=== PATIENT | female | born 1980 | race Caucasian/White ===

== ENCOUNTER 2016-09-29 08:21 | Emergency (ER) | payer OTHER ==
[2016-09-29] MEDS ORDERED: OXYCODONE HCL SR 10 MG TABLET PO ONE ×2 (10:11→16:15)
[2016-09-29] MEDS ORDERED: PIPERACILLIN/TAZOBACTAM 3.375 GM VIAL IV ONE ×2 (11:34→16:15)
[2016-09-29] MEDS ORDERED: VANCOMYCIN HCL INJ 1000 MG VIAL IV ONE ×2 (11:34→16:15)
--- NOTE | 2016-09-29 11:36 | ER Document Report ---
ED General - General Mode of Arrival: Ambulatory Information source: Patient TRAVEL OUTSIDE OF THE U.S. IN LAST 30 DAYS: No <RICHELLE RAMIREZ - Last Filed: 09/29/16 17:07> <AUBREE SIMON - Last Filed: 09/30/16 05:45> - General Chief Complaint: Post Surgical Bleeding Stated Complaint: POST OP PROBLEM Time Seen by Provider: 09/29/16 09:53 Notes: Patient is a 36-year-old female who presents to the ER today for draining from her surgical incision site. Patient had a right thoracotomy and esophagogastrectomy on 13 September at [facility] and states that last night the pain to the right back at the incision site started getting worse, she had to take 15 mg of oxycodone which is unusual for her. She states that this morning it started leaking pus. She denies any fevers or chills. She states her surgeon at [facility] is Dr. Gtz. (RICHELLE RAMIREZ) - Related Data Allergies/Adverse Reactions: latex [Latex] Allergy (Severe, Verified 09/29/16 08:25) Hives hydrocodone bitartrate [From Lortab] Allergy (Mild, Verified 09/29/16 08:25) Urticaria tramadol HCl [From Ultram] Allergy (Verified 09/29/16 08:25) Past Medical History - General Information source: Patient - Social History Smoking Status: Never Smoker Chew tobacco use (# tins/day): No Frequency of alcohol use: Occasional Drug Abuse: None Family History: Reviewed & Not Pertinent Patient has suicidal ideation: No Patient has homicidal ideation: No - Past Medical History Cardiac Medical History: Denies: Hx Coronary Artery Disease, Hx Heart Attack, Hx Hypertension Pulmonary Medical History: Reports: Hx Asthma, Hx Pneumonia - asipration pneumonia x4 Denies: Hx Bronchitis, Hx COPD Neurological Medical History: Denies: Hx Cerebrovascular Accident, Hx Seizures Renal/ Medical History: Denies: Hx Peritoneal Dialysis Musculoskeltal Medical History: Reports Hx Arthritis Past Surgical History: Reports: Hx Abdominal Surgery - j-tube placement, Hx Section - x's2, Hx Cholecystectomy, Hx Gynecologic Surgery - "various" . Denies: Hx Hysterectomy - Immunizations Hx Diphtheria, Pertussis, Tetanus Vaccination: Yes <RICHELLE RAMIREZ - Last Filed: 09/29/16 17:07> Review of Systems - Review of Systems Constitutional: No symptoms reported EENT: No symptoms reported Cardiovascular: No symptoms reported Respiratory: No symptoms reported Gastrointestinal: No symptoms reported Genitourinary: No symptoms reported Female Genitourinary: No symptoms reported Musculoskeletal: No symptoms reported Skin: See HPI Hematologic/Lymphatic: No symptoms reported Neurological/Psychological: No symptoms reported <LLOYD RAMIREZANDA - Last Filed: 09/29/16 17:07> Physical Exam <RICHELLE RAMIREZ - Last Filed: 09/29/16 17:07> <AUBREE SIMON - Last Filed: 09/30/16 05:45> - Vital signs Vitals: Temp Pulse Resp BP Pulse Ox 98.6 F 112 H 19 107/57 L 95 09/29/16 08:25 09/29/16 08:25 09/29/16 08:25 09/29/16 08:25 09/29/16 08:25 - Notes Notes: PHYSICAL EXAMINATION: GENERAL: Well-appearing and in no acute distress. HEAD: Atraumatic, normocephalic. EYES: Pupils equal round and reactive to light, extraocular movements intact, sclera anicteric, conjunctiva are normal. NECK: Normal range of motion, supple without lymphadenopathy LUNGS: CTAB and equal. No wheezes rales or rhonchi. HEART: Regular rate and rhythm without murmurs ABDOMEN: Soft, no tenderness. No guarding, no rebound BACK: see skin below, no vertebral tenderness, normal ROM GI/: no CVA tenderness EXTREMITIES: Normal range of motion, no pitting edema. No cyanosis. NEUROLOGICAL: Cranial nerves grossly intact. Normal sensory/motor exams. PSYCH: Normal mood, normal affect. SKIN: Warm, Dry, normal turgor, large incision site to right upper back with 7cm by 4 cm of induration and tenderness and constant leaking of purulent drainage from one small, less than 1cm area only, no erythema surrounding incision site (RICHELLE RAMIREZ) Course - Laboratory Result Diagrams: 09/29/16 11:48 09/29/16 11:48 <RICHELLE RAMIREZ - Last Filed: 09/29/16 17:07> - Laboratory Result Diagrams: 09/29/16 11:48 09/29/16 11:48 <AUBREE SIMON - Last Filed: 09/30/16 05:45> - Re-evaluation Re-evalutation: 09/29/16 13:33 Patient has a white count of 13.6, she is afebrile here. I did consult with Dr. Gtz, who does want her to go back to [facility] so that he can drain this in the operating room. Radiologist just called and said that it does appear that she has had an aspiration pneumonia on chest x-ray. PICC line will be placed here and patient has already been ordered IV antibiotics but she is an incredibly difficult stick and we have been unable to get an IV at this point. Clinically she is doing very well. 09/29/16 13:36 Dr. Gtz is accpeting, she will go [facility] for direct admission. We are awaiting bed assignment. Shes asking for pain medication. 09/29/16 17:07 just called [facility], they do not have a clue when pt may get a bed. (RICHELLE RAMIREZ) 09/29/16 22:08 Patient asking for additional pain medicine, giving oxycodone. Patient now has a bed assignment, transport is about 25 minutes away, patient asking for Phenergan for the trip. She has a PICC line in place. No other complaints at this time. Vital signs with no remarkable changes. Stable for transfer. 09/29/16 23:00 EMS arriving. Patient comfortable. No changes from prior. Borderline tachycardia , no hypotension. Stable for transport. (AUBREE SIMON) - Vital Signs Vital signs: Temp Pulse Resp BP Pulse Ox 98.5 F 98 16 109/69 95 09/29/16 21:40 09/29/16 21:40 09/29/16 23:01 09/29/16 23:01 09/29/16 23:01 - Laboratory Laboratory results interpreted by ga: 09/29/16 09/29/16 11:48 11:48 WBC 13.6 H RBC 3.43 L Hgb 10.3 L Hct 30.5 L Seg Neutrophils % 80.2 H Lymphocytes % 6.5 L Absolute Neutrophils 10.9 H Absolute Monocytes 1.6 H Sodium 133.9 L Potassium 3.5 L Creatinine 0.43 L Glucose 118 H Total Protein 5.3 L Albumin 2.7 L Discharge <RICHELLE RAMIREZ - Last Filed: 09/29/16 17:07> <BOUCHRAALBERTOAUBREE - Last Filed: 09/30/16 05:45> - Discharge Clinical Impression: Status post peripherally inserted central catheter (PICC) central line placement Aspiration pneumonia Qualifiers: Aspiration pneumonia type: unspecified Laterality: right Lung location: lower lobe of lung Qualified Code(s): J69.0 - Pneumonitis due to inhalation of food and vomit Deep incisional surgical site infection Qualifiers: Encounter type: initial encounter Qualified Code(s): T81.4XXA - Infection following a procedure, initial encounter Condition: Stable [facility]: [facility]
[2016-09-29 12:01] LABS: ABSOLUTE EOSINOPHILS # (AUTO) 0.1 10^3/uL (0.0-0.6); ABSOLUTE LYMPHOCYTES (AUTO) 0.9 10^3/uL (0.5-4.7); ABSOLUTE MONOCYTES (AUTO) 1.6 10^3/uL (0.1-1.4); ABSOLUTE NEUT (AUTO) 10.9 10^3/uL (1.7-8.2); BASOPHILS % (AUTO) 0.3 % (0-2); HEMATOCRIT 30.5 % (36.0-47.0); HEMOGLOBIN 10.3 g/dL (12.0-15.5); HGB HCT DIFFERENCE 0.4; LYMPHOCYTES % (AUTO) 6.5 % (13-45); MEAN CORPUSCULAR HGB CONC 33.7 g/dL (32.0-36.0); MEAN CORPUSCULAR VOLUME 89 fl (80-97); RED BLOOD COUNT 3.43 10^6/uL (3.72-5.28); RED CELL DISTRIBUTION WIDTH 13.3 % (11.5-14.0); SEGMENTED NEUTROPHILS % (AUTO) 80.2 % (42-78); WHITE BLOOD COUNT 13.6 10^3/uL (4.0-10.5)
[2016-09-29 12:17] LABS: ALANINE AMINOTRANSFERASE 24 U/L (9-52); ALBUMIN 2.7 g/dL (3.5-5.0); ALKALINE PHOSPHATASE 93 U/L (38-126); ANION GAP 8 (5-19); ASPARTATE AMINO TRANSFERASE 14 U/L (14-36); BILIRUBIN,DIRECT 0.4 mg/dL (0.0-0.4); BILIRUBIN,TOTAL 0.4 mg/dL (0.2-1.3); BLOOD UREA NITROGEN 8 mg/dL (7-20); CALCIUM 8.7 mg/dL (8.4-10.2); CARBON DIOXIDE 23 mmol/L (22-30); CHLORIDE 103 mmol/L (98-107); CREATININE RESULT 0.43 mg/dL (0.52-1.25); GLUCOSE 118 mg/dL (75-110); POTASSIUM 3.5 mmol/L (3.6-5.0); SODIUM 133.9 mmol/L (137-145); TOTAL PROTEIN 5.3 g/dL (6.3-8.2)
--- NOTE | 2016-09-29 13:44 | RADIOLOGY REPORT (SQ) ---
EXAM DESCRIPTION: CHEST PA/LAT COMPLETED DATE/TIME: 09/29/2016 1:32 pm REASON FOR STUDY: cough productive Post right thoracotomy and esophagectomy, purulent wound drainage COMPARISON: None. EXAM PARAMETERS: NUMBER OF VIEWS: two views TECHNIQUE: Digital Frontal and Lateral radiographic views of the chest acquired. RADIATION DOSE: NA LIMITATIONS: none FINDINGS: LUNGS AND PLEURA: On the right side, there is blunting of the right lateral costophrenic a ngle and posterior costophrenic sulcus from pleural fluid or pleural thickening. Diffuse consolidati on is seen in the right lower lobe, atelectasis versus pneumonia. On the left side, there is retrocardiac consolidation atelectasis versus pneumonia. No pneumothorax. No left pleural effusion. MEDIASTINUM AND HILAR STRUCTURES: No masses or contour abnormalities. HEART AND VASCULAR STRUCTURES: Heart normal size. No evidence for failure. BONES: No acute findings. HARDWARE: Surgical clips in the left paratracheal region, left upper quadrant, and right upper quadra nt OTHER: No other significant finding. IMPRESSION: Post right thoracotomy for esophagectomy and gastric pull-through. There is a small elicia unt of right lateral costophrenic sulcus pleural fluid. Dense right retrocardiac and minimal left re trocardiac consolidation atelectasis versus pneumonia. This report was discussed with the patient's ED provider. TECHNICAL DOCUMENTATION: JOB ID: [id number] [employer]- All Rights Reserved
[2016-09-29] MEDS ORDERED: MORPHINE SULFATE 10 MG/ML INJ IV ONE (14:02)
[2016-09-29] MEDS ORDERED: OXYCODONE HCL IR 5 MG TABLET PO ONE ×3 (14:15→22:08)
[2016-09-29] MEDS ORDERED: MORPHINE SULFATE 10 MG/ML INJ IM ONE (14:16)
--- NOTE | 2016-09-29 15:44 | RADIOLOGY REPORT (SQ) ---
EXAM DESCRIPTION: PICC INSERTION; U/S GUIDE FOR VASCULAR ACCESS; FLUORO/CV PLACEMENT COMPLETED DATE/TIME: 09/29/2016 3:35 pm REASON FOR STUDY: pending transfer, difficult access; IV ACCESS COMPARISON: Two-view chest 09/29/2016 FLUOROSCOPY TIME: 1 minutes 48 seconds 1 digital chest and 1 ultrasound images saved to PACS. TECHNIQUE: Fluoroscopic and ultrasound guided PICC placement. LIMITATIONS: None. PROCEDURE: After written consent and assessment were obtained, the patient was brought into the fluo roscopy room and place supine on the table. Ultrasound was used on the patient's right arm for PICC access. The right arm was prepped and draped in a sterile fashion along with the ultrasound probe. Th e entry site was anesthetized with 3 mL of 1% lidocaine. A 21 gauge 7 cm needle was advanced through the skin and into the right basilic vein under live ultrasound guidance. An ultrasound image was hong ed to PACS confirming access site. A .018 guide wire was then inserted through the needle and into t he venous system. The needle was the removed and an 11 blade scalpel was used to make a 1cm skin inci jenni. A 5 fr peel-away sheath was advanced over the wire and into the venous system. A measurement w as then made using the existing wire and live fluoroscopic guidance. The wire was then removed and th e trimmed. The PICC was advanced through the peel-away sheath and into the venous system. The peel-aw ay sheath was removed and the catheter was adhered to the patients arm with a stat lock. The catheter was then aspirated and flushed and a sterile bandage was placed over the access site. A fluoroscopi c spot image was saved to PACS confirming the catheter tip within the superior vena cava. IMPRESSION: SUCCESSFUL PLACEMENT OF A 5 FR DUAL LUMEN 31 CM PICC IN THE RIGHT BASILIC VEIN. COMMENT: Patient medication list reviewed: Yes- Quality ID# [id number]:Eligible professional attests to doc umenting in the medical record they obtained, updated, or reviewed the patient's current medications. . Quality ID 145: Final reports for procedures using fluoroscopy that document radiation exposure juli teagan, or exposure time and number of fluorographic images (if radiation exposure indices are not avail able) Quality ID #76: The patient was prepped and draped using maximum sterile barrier technique including cap, mask, sterile gown, sterile gloves, a large sterile sheet, hand hygiene, and 2% Chlorhexidine fo r cutaneous antisepsis. When ultrasound is used, sterile ultrasound techniques are followed requiring sterile gel and sterile probes. TECHNICAL DOCUMENTATION: JOB ID: [id number] [employer]- All Rights Reserved
[2016-09-29] MEDS ORDERED: HYDROMORPHONE HCL INJ/PF 2 MG/ML AMPULE IV ONE ×2 (17:06→21:01)
[2016-09-29] MEDS ORDERED: BENZONATATE 100 MG CAPSULE PO ONE (17:06)
[2016-09-29] MEDS ORDERED: PROMETHAZINE HCL INJ 25 MG/1 ML VIAL IV ONE (22:03)
[2016-09-29] MEDS ORDERED: PROMETHAZINE HCL INJ 25 MG/1 ML VIAL ONE (22:21)
[2016-09-29] MEDS ORDERED: ACETAMINOPHEN 325 MG TABLET ONE (22:28)
[2016-09-29] MEDS ORDERED: ACETAMINOPHEN 325 MG TABLET PO ONE (22:40)
--- NOTE | 2016-09-29 22:50 | ER Document Report ---
Doctor's Note Notes: 09/29/16 22:49 Patient was seen and evaluated at bedside, awake and alert, no complaints at present time, reports no needs, EMS [facility] in the department to pick patient up and transport to tertiary care center, patient is stable for transport at this time
[2016-09-29 23:14] VITALS: BP 109/69
== END 2016-09-29 23:20 ==
LOC: ER 08:21
DX: T81.4XXA Infection following a procedure, initial encounter (principal); Y83.6 Removal of other organ (partial) (total) as the cause of abnormal reaction of the patient, or of later complication, without mention of misadventure at the time of the procedure; J69.0 Pneumonitis due to inhalation of food and vomit; Z90.49 Acquired absence of other specified parts of digestive tract; Z90.3 Acquired absence of stomach [part of]; Z91.040 Latex allergy status; Z88.5 Allergy status to narcotic agent; J45.909 Unspecified asthma, uncomplicated
CPT/HCPCS: 96376; 99285; 96372; 96375; 96365; 96368; 36415; 87040; 87070; 87205; 85025; 87075; 87077; 80053; 87186; 71020; 36569; 77001; 76937; J2270; J1170; J3370; J1642; J2543; J2550

== ENCOUNTER 2017-01-17 16:24 | Emergency (ER) | payer OTHER ==
[2017-01-17] MEDS ORDERED: ONDANSETRON HCL INJ/PF 4 MG/2 ML SDV IV ONE ×2 (16:41→17:02)
[2017-01-17] MEDS ORDERED: NORMAL SALINE 1000 ML 1,000 ML IV ONE ×2 (16:41→17:03)
[2017-01-17] MEDS ORDERED: HYDROMORPHONE HCL INJ/PF 2 MG/ML AMPULE IV ONE ×3 (17:01→22:35)
[2017-01-17 17:04] LABS: ABSOLUTE BASOPHILS # (AUTO) 0.1 10^3/uL (0.0-0.2); ABSOLUTE EOSINOPHILS # (AUTO) 0.1 10^3/uL (0.0-0.6); ABSOLUTE LYMPHOCYTES (AUTO) 2.2 10^3/uL (0.5-4.7); ABSOLUTE MONOCYTES (AUTO) 0.8 10^3/uL (0.1-1.4); ABSOLUTE NEUT (AUTO) 9.1 10^3/uL (1.7-8.2); BASOPHILS % (AUTO) 0.5 % (0-2); EOSINOPHILS % (AUTO) 1.1 % (0-6); HEMATOCRIT 44.5 % (36.0-47.0); HEMOGLOBIN 14.5 g/dL (12.0-15.5); LYMPHOCYTES % (AUTO) 18.1 % (13-45); MEAN CORPUSCULAR HGB CONC 32.5 g/dL (32.0-36.0); MEAN CORPUSCULAR VOLUME 80 fl (80-97); MONOCYTES % (AUTO) 6.9 % (3-13); RED BLOOD COUNT 5.57 10^6/uL (3.72-5.28); RED CELL DISTRIBUTION WIDTH 17.5 % (11.5-14.0); SEGMENTED NEUTROPHILS % (AUTO) 73.4 % (42-78); WHITE BLOOD COUNT 12.3 10^3/uL (4.0-10.5)
--- NOTE | 2017-01-17 17:08 | ER Document Report ---
ED General - General Information source: Patient, Relative TRAVEL OUTSIDE OF THE [place]. IN LAST 30 DAYS: No - HPI Patient complains to provider of: Epigastric pain Onset: Just prior to arrival Onset/Duration: Sudden, Persistent Severity: Severe Pain Level: 5 Associated symptoms: Nausea, Vomiting Exacerbated by: Denies Relieved by: Denies Similar symptoms previously: No Recently seen / treated by doctor: No <GERARDO SPRINGER - Last Filed: 01/17/17 19:51> <RACIEL PATTEN - Last Filed: 01/18/17 02:37> - General Chief Complaint: Abdominal Pain Stated Complaint: ABDOMINAL PAIN Time Seen by Provider: 01/17/17 16:51 - HPI Notes: 36-year-old female presents emergency department with the above chief complaint. Patient had esophagectomy August 14, 2007. In September of this year she is also had a thoracotomy for a pyloric repair. That was followed by wound infection. Presented here for acute onset of severe epigastric pain. She states that her stomach is now in her thoracic cavity. Sur[facility] (GERARDO SPRINGER) - Related Data Allergies/Adverse Reactions: latex [Latex] Allergy (Severe, Verified 01/17/17 16:25) Hives hydrocodone bitartrate [From Lortab] Allergy (Mild, Verified 01/17/17 16:25) Urticaria tramadol HCl [From Ultram] Allergy (Verified 01/17/17 16:25) Past Medical History - General Information source: Patient, Relative - Social History Smoking Status: Never Smoker Frequency of alcohol use: Social - Wine Drug Abuse: None Lives with: Family Family History: Reviewed & Not Pertinent - Past Medical History Cardiac Medical History: Denies: Hx Coronary Artery Disease, Hx Heart Attack, Hx Hypertension Pulmonary Medical History: Reports: Hx Asthma, Hx Pneumonia - asipration pneumonia x4 Denies: Hx Bronchitis, Hx COPD Neurological Medical History: Denies: Hx Cerebrovascular Accident, Hx Seizures Endocrine Medical History: Reports: None Renal/ Medical History: Reports: None. Denies: Hx Peritoneal Dialysis Malignancy Medical History: Reports: None GI Medical History: Reports: Hx Gastroesophageal Reflux Disease, Other - Benign esophageal tumor Musculoskeltal Medical History: Reports Hx Arthritis Skin Medical History: Reports None Psychiatric Medical History: Reports: None Traumatic Medical History: Reports: None Past Surgical History: Reports: Hx Abdominal Surgery - j-tube placement, Hx Section - x's2, Hx Cholecystectomy, Hx Gynecologic Surgery - "various" . Denies: Hx Hysterectomy - Immunizations Hx Diphtheria, Pertussis, Tetanus Vaccination: Yes <GERARDO SPRINGER - Last Filed: 01/17/17 19:51> <RACIEL PATTEN - Last Filed: 01/18/17 02:37> Other: Patient states she had a right wrist fracture which required repair with no hardware placed (GERARDO SPRINGER E) Review of Systems - Review of Systems Constitutional: No symptoms reported EENT: No symptoms reported Cardiovascular: No symptoms reported Respiratory: No symptoms reported Gastrointestinal: Abdominal pain, Nausea, Vomiting Female Genitourinary: No symptoms reported Musculoskeletal: No symptoms reported Skin: No symptoms reported Hematologic/Lymphatic: No symptoms reported Neurological/Psychological: No symptoms reported <FAVIOANNASAMMIMASON E - Last Filed: 01/17/17 19:51> Physical Exam <FAVIOANNASAMMIMASON Sofya - Last Filed: 01/17/17 19:51> <RACIEL PATTEN - Last Filed: 01/18/17 02:37> - Vital signs Vitals: Resp BP 22 H 116/94 H 01/17/17 16:31 01/17/17 16:31 - Notes Notes: PHYSICAL EXAMINATION: GENERAL: Pale nontoxic acute distress secondary to epigastric pain HEAD: Atraumatic, normocephalic. EYES: Pupils equal round and reactive to light, extraocular movements intact, conjunctiva are normal. ENT: Nares patent, oropharynx clear without exudates. Moist mucous membranes. NECK: Normal range of motion, supple without lymphadenopathy LUNGS: Breath sounds clear to auscultation bilaterally and equal. No wheezes rales or rhonchi. HEART: Regular rate and rhythm without murmurs ABDOMEN: Soft, pain with epigastric area palpation, nondistended abdomen. No guarding, no rebound. No masses appreciated. Female : deferred Musculoskeletal: Normal range of motion, no pitting or edema. No cyanosis. NEUROLOGICAL: Cranial nerves grossly intact. Normal speech, normal gait. Normal sensory, motor exams PSYCH: Normal mood, normal affect. SKIN: Warm, Dry, normal turgor, no rashes or lesions noted. (GERARDO SPRINGER) Course - Laboratory Result Diagrams: 01/17/17 16:51 01/17/17 16:51 - Diagnostic Test Radiology reviewed: Image reviewed, Reports reviewed - SBO <GERARDO SPRINGER - Last Filed: 01/17/17 19:51> - Laboratory Result Diagrams: 01/17/17 16:51 01/17/17 16:51 <RACIEL PATTEN - Last Filed: 01/18/17 02:37> - Re-evaluation Re-evalutation: 01/17/17 19:32 I did speak to our surgeon who stated transfer to [facility] is acceptable. Pt. is aware of her diagnosis and agreeable to transfer. [place] is aware and implementing transfer protocol (GERARDO SPRINGER) 01/18/17 02:35 We still [facility] as they were still trying find the [facility]. I went reevaluate the patient and she is doing okay but since she has started have some pain come back. Her abdomen is still soft on exam without rigidiy or significant guarding. I will reorder pain medicine. [facility] called the [facility] again and spoke with the historic site administrator, Adrian Capellan. He informed me that they are trying everything to get in touch with the surgeon. After I talked to Mr. Capellan he called back approximately 10 minutes later and said they have finally got in touch with the surgeon and the patient is accepted as an ER to ER transfer. He said the accepting physician is Dr. Lisa Francisco. Our nurse is calling to give report and we will arrange transport. (RACIEL PATTEN) - Vital Signs Vital signs: Temp Pulse Resp BP Pulse Ox 98.1 F 84 14 100/66 97 01/18/17 01:28 01/18/17 01:28 01/18/17 01:28 01/18/17 01:28 01/18/17 01:28 - Laboratory Laboratory results interpreted by me: 01/17/17 01/17/17 01/17/17 16:51 16:51 19:53 WBC 12.3 H RBC 5.57 H MCH 26.0 L RDW 17.5 H Absolute Neutrophils 9.1 H Carbon Dioxide 20 L BUN 24 H Glucose 159 H Calcium 10.3 H Alkaline Phosphatase 135 H Total Protein 8.3 H Urine Ketones TRACE H Urine Blood MODERATE H Ur Leukocyte Esterase TRACE H Discharge <GERARDO SPRINGER - Last Filed: 01/17/17 19:51> <RACIEL PATTEN - Last Filed: 01/18/17 02:37> - Discharge Clinical Impression: Small bowel obstruction [facility]: [facility]
[2017-01-17 17:22] LABS: ALANINE AMINOTRANSFERASE 31 U/L (9-52); ALBUMIN 4.9 g/dL (3.5-5.0); ALKALINE PHOSPHATASE 135 U/L (38-126); ANION GAP 17 (5-19); ASPARTATE AMINO TRANSFERASE 21 U/L (14-36); BILIRUBIN,DIRECT 0.4 mg/dL (0.0-0.4); BILIRUBIN,TOTAL 0.5 mg/dL (0.2-1.3); BLOOD UREA NITROGEN 24 mg/dL (7-20); CALCIUM 10.3 mg/dL (8.4-10.2); CARBON DIOXIDE 20 mmol/L (22-30); CHLORIDE 105 mmol/L (98-107); CREATININE RESULT 0.82 mg/dL (0.52-1.25); GLUCOSE 159 mg/dL (75-110); LIPASE 189.9 U/L (23-300); POTASSIUM 4.4 mmol/L (3.6-5.0); SODIUM 142.2 mmol/L (137-145); TOTAL PROTEIN 8.3 g/dL (6.3-8.2)
--- NOTE | 2017-01-17 18:55 | RADIOLOGY REPORT (SQ) ---
EXAM DESCRIPTION: CT CHEST WITH; CT ABD/PELVIS WITH IV ONLY COMPLETED DATE/TIME: 01/17/2017 6:36 pm REASON FOR STUDY: epigastric pain/esophogectomy COMPARISON: Correlation made to CT chest from 12/14/2007 CONTRAST TYPE AND DOSE: contrast/concentration: Isovue 370.00 mg/ml; Total Contrast Delivered: 74.0 ml; Total Saline Delivered: 66.0 ml RENAL FUNCTION: None required. The patient is less than 50 years old. TECHNIQUE: CT scan of the chest performed using helical scanning technique with dynamic intravenous contrast injection. Images reviewed with lung, soft tissue and bone windows. Reconstructed coronal a nd sagittal MPR images reviewed. All images stored on PACS. CT scan of the abdomen and pelvis performed with intravenous and with oral contrastusing helical scan feliciano technique with dynamic intravenous contrast injection. Images reviewed with lung, soft tissue a nd bone windows. Reconstructed coronal and sagittal MPR images reviewed. Delayed images for evaluat ion of the urinary system also acquired and evaluated. All images stored on PACS. All CT scanners at this facility use dose modulation, iterative reconstruction, and/or weight based d osing when appropriate to reduce radiation dose to as low as reasonably achievable (ALARA). [facility]: Dose Right [facility]: CareDose [facility]: Dose Right [facility]: Teradose 4D [facility]: Smart Technologies RADIATION DOSE: CT Rad equipment meets quality standard of care and radiation dose reduction techniq ues were employed. CTDIvol: NaN - NaN mGy. DLP: 0 mGy-cm. . LIMITATIONS: None. FINDINGS: CHEST: LUNGS AND PLEURA: No opacities, nodules, masses. No pneumothorax. No effusions. HILAR AND MEDIASTINAL STRUCTURES: No identified masses or abnormal nodes. Stable postsurgical change related to esophagectomy with gastric pull through. HEART AND VASCULAR STRUCTURES: No aneurysm or dissection. No central pulmonary emboli. No pericardi al effusion. HARDWARE: None. THYROID AND OTHER SOFT TISSUES: No masses. No adenopathy. BONES: No significant finding. OTHER: No other significant finding. ABDOMEN AND PELVIS: LIVER: Normal size. 3.3 cm low attenuating lesion right hepatic lobe lobe present on prior noncontra st CT chest which demonstrates nodular peripheral discontinuous enhancement which begins to fill in o n delayed imaging compatible with a benign hemangioma. No additional liver lesions. No dilated duct s. SPLEEN: Normal size. No focal lesions. PANCREAS: No masses. No significant calcifications. No adjacent inflammation or peripancreatic fluid collections. Pancreatic duct not dilated. GALLBLADDER: Surgically absent. ADRENAL GLANDS: No significant masses or asymmetry. RIGHT KIDNEY AND URETER: No solid masses. No significant calcification. No hydronephrosis or hydroure ter. LEFT KIDNEY AND URETER: No solid masses. No significant calcification. No hydronephrosis or hydrouret er. AORTA AND VESSELS: No aneurysm. No dissection. Renal arteries, SMA, celiac without stenosis. RETROPERITONEUM: No retroperitoneal adenopathy, hemorrhage or masses. BOWEL AND PERITONEAL CAVITY: Marked fluid distension of the proximal small bowel loops with decompres sed distal small bowel loops and colon compatible with a high grade small bowel obstruction. Transit ion 0.7 inch to be somewhere in the mid abdomen best visualized on series 3, image 77 and series 601, image 23. No pneumatosis or free air. APPENDIX: Normal. ABDOMINAL WALL: No masses. No hernias. BONES: No significant or acute findings. OTHER: No other significant finding. IMPRESSION: NORMAL CT OF THE CHEST WITH IV CONTRAST. POSTSURGICAL CHANGE RELATED TO ESOPHAGECTOMY W ITH GASTRIC PULL-THROUGH. CT FINDINGS COMPATIBLE WITH HIGH-GRADE SMALL BOWEL OBSTRUCTION WITH TRANSITION POINT SOMEWHERE IN THE MID ABDOMEN. NO PNEUMATOSIS OR FREE AIR. SURGICAL CONSULTATION RECOMMENDED. TECHNICAL DOCUMENTATION: JOB ID: [id number] Quality ID # [id number]: Final reports with documentation of one or more dose reduction techniques (e.g., Au tomated exposure control, adjustment of the mA and/or kV according to patient size, use of iterative reconstruction technique) 2010 [employer] All Rights Reserved
[2017-01-17 20:26] LABS: APPEARANCE,URINE CLEAR; BILIRUBIN,URINE NEGATIVE (NEGATIVE); GLUCOSE, URINE NEGATIVE (NEGATIVE); KETONES,URINE TRACE mg/dL (NEGATIVE); LEUKOCYTE ESTERASE,URINE TRACE (NEGATIVE); NITRITE,URINE NEGATIVE (NEGATIVE); PROTEIN,URINE NEGATIVE (NEGATIVE); URINE SPECIFIC GRAVITY > 1.060; UROBILINOGEN,URINE NEGATIVE mg/dL (<2.0)
[2017-01-17] MEDS ORDERED: PANTOPRAZOLE SODIUM 40 MG VIAL IV ONE (21:35)
[2017-01-18] MEDS ORDERED: HYDROMORPHONE HCL INJ/PF 2 MG/ML AMPULE IV ONE (02:37)
[2017-01-18 03:26] VITALS: BP 102/68
== END 2017-01-18 03:40 ==
LOC: ER 16:24
DX: K56.609 Unspecified intestinal obstruction, unspecified as to partial versus complete obstruction (principal); R10.13 Epigastric pain; R11.2 Nausea with vomiting, unspecified; Z91.040 Latex allergy status; Z88.6 Allergy status to analgesic agent; Z90.49 Acquired absence of other specified parts of digestive tract
CPT/HCPCS: 96376; 99285; 96361; 96374; 96375; 36415; 83690; 84703; 85025; 80053; 81001; 71260; 74177; J1170 ×2; S0164; J2405; J7030

== ENCOUNTER 2017-01-30 05:19 | Emergency (ER) | payer OTHER ==
[2017-01-30] MEDS ORDERED: PROMETHAZINE HCL INJ 25 MG/1 ML VIAL IM ONE (05:29)
[2017-01-30] MEDS ORDERED: NORMAL SALINE 1000 ML 1,000 ML IV ONE (05:30)
[2017-01-30] MEDS ORDERED: HYDROMORPHONE HCL INJ/PF 2 MG/ML AMPULE IV ONE ×2 (05:36→08:43)
--- NOTE | 2017-01-30 05:38 | ER Document Report ---
Doctor's Note Notes: 01/30/17 05:37 I performed a quick triage evaluation the patient. Patient is a 36-year-old female who has a history of esophagectomy by procedure with a pulled her stomach up into the chest cavity to form a new esophageal type tract. Patient has a history of recurrent obstructions. She was seen here just over week ago. She was diagnosed with obstruction and sent to the [facility] in [place]. She was treated there over several days. She eventually was able to have NG tube removed and had a bowel movement. She said she was still having cramping but being that she has a bowel movement there will discharge home. Since then she is continued to have worsening worsening abdominal pain and now is to the point where she cannot hold down any food or liquids and feels that she is obstructed again. No fevers. No infections. No blood in her stool. No blood or emesis. No other complaints at this time. On exam patient is in obvious pain and does have some pain to palpation her abdomen. Abdomen is not rigid or firm or hard. I have ordered blood work as well as pain medicine and nausea medicine as well as abdominal x-rays. Dictation of this chart was performed using voice recognition software; therefore, there may be some unintended grammatical errors.
[2017-01-30 06:07] LABS: ABSOLUTE EOSINOPHILS # (AUTO) 0.1 10^3/uL (0.0-0.6); ABSOLUTE LYMPHOCYTES (AUTO) 2.5 10^3/uL (0.5-4.7); ABSOLUTE MONOCYTES (AUTO) 0.8 10^3/uL (0.1-1.4); ABSOLUTE NEUT (AUTO) 4.4 10^3/uL (1.7-8.2); BASOPHILS % (AUTO) 0.4 % (0-2); EOSINOPHILS % (AUTO) 1.3 % (0-6); HEMATOCRIT 41.1 % (36.0-47.0); HEMOGLOBIN 13.7 g/dL (12.0-15.5); LYMPHOCYTES % (AUTO) 32.2 % (13-45); MEAN CORPUSCULAR HEMOGLOBIN 25.9 pg (27.0-33.4); MEAN CORPUSCULAR HGB CONC 33.2 g/dL (32.0-36.0); MEAN CORPUSCULAR VOLUME 78 fl (80-97); MONOCYTES % (AUTO) 10.1 % (3-13); PLATELET COUNT 373 10^3/uL (150-450); RED BLOOD COUNT 5.28 10^6/uL (3.72-5.28); RED CELL DISTRIBUTION WIDTH 17.7 % (11.5-14.0); TOTAL CELLS COUNTED % (AUTO) 100 %; WHITE BLOOD COUNT 7.9 10^3/uL (4.0-10.5)
[2017-01-30 06:23] LABS: ALANINE AMINOTRANSFERASE 29 U/L (9-52); ALBUMIN 4.5 g/dL (3.5-5.0); ALKALINE PHOSPHATASE 108 U/L (38-126); ANION GAP 16 (5-19); ASPARTATE AMINO TRANSFERASE 16 U/L (14-36); BILIRUBIN,DIRECT 0.3 mg/dL (0.0-0.4); BILIRUBIN,TOTAL 0.3 mg/dL (0.2-1.3); BLOOD UREA NITROGEN 17 mg/dL (7-20); CALCIUM 10.3 mg/dL (8.4-10.2); CARBON DIOXIDE 23 mmol/L (22-30); CHLORIDE 101 mmol/L (98-107); GLUCOSE 126 mg/dL (75-110); LIPASE 533.3 U/L (23-300); SODIUM 139.9 mmol/L (137-145); TOTAL PROTEIN 7.7 g/dL (6.3-8.2)
--- NOTE | 2017-01-30 06:26 | ER Document Report ---
ED GI/ - General Mode of Arrival: Ambulatory Information source: Patient, [facility] Records TRAVEL OUTSIDE OF THE [place] IN LAST 30 DAYS: No <HOMER MANZANARES - Last Filed: 01/30/17 16:42> <ZULEMA LAINEZ - Last Filed: 01/30/17 20:02> - General Chief Complaint: Abdominal Pain Stated Complaint: ABDOMINAL PAIN Time Seen by Provider: 01/30/17 06:07 Notes: This 36-year-old female patient comes emergency room complaining of mid abdominal pain with nausea vomiting. She was seen here on 01/17/2017 with a high-grade small bowel obstruction with transition point in the mid abdomen. She was transferred to [facility] where she had an NG tube for 6 days. NG tube removed 36 hours before discharge, she did pass some gas and then had a bowel movement. She was discharged home at that time. She has been doing bowel movements, yesterday they were runny. The patient states she has had pain since she was discharged, but now it is gotten much worse and she has been unable to keep down food, fluids, or medications. (HOMER MANZANARES) - Related Data Allergies/Adverse Reactions: latex [Latex] Allergy (Severe, Verified 01/30/17 05:22) Hives hydrocodone bitartrate [From Lortab] Allergy (Mild, Verified 01/30/17 05:22) Urticaria tramadol HCl [From Ultram] Allergy (Verified 01/30/17 05:22) Past Medical History - General Information source: Patient - Social History Smoking Status: Unknown if Ever Smoked Cigarette use (# per day): No Chew tobacco use (# tins/day): No Smoking Education Provided: No Frequency of alcohol use: None Drug Abuse: None Occupation: Unemployed Lives with: Spouse/Significant other Family History: Reviewed & Not Pertinent Patient has suicidal ideation: No Patient has homicidal ideation: No - Past Medical History Cardiac Medical History: Reports: None Pulmonary Medical History: Reports: Hx Asthma, Hx Pneumonia - asipration pneumonia x4 EENT Medical History: Reports: None Neurological Medical History: Reports: None. Denies: Hx Cerebrovascular Accident, Hx Seizures Endocrine Medical History: Reports: None Renal/ Medical History: Reports: None GI Medical History: Reports: Hx Gastroesophageal Reflux Disease, Hx Endoscopy Musculoskeltal Medical History: Reports Hx Arthritis Psychiatric Medical History: Reports: None Past Surgical History: Reports: Hx Abdominal Surgery - j-tube placement, Hx Section - x's2, Hx Cholecystectomy, Hx Gynecologic Surgery - "various" - Immunizations Hx Diphtheria, Pertussis, Tetanus Vaccination: Yes <HOMER MANZANARES - Last Filed: 01/30/17 16:42> Physical Exam - Vital signs Interpretation: Tachycardic - General General appearance: Alert In distress: Mild - HEENT Head: Normocephalic, Atraumatic Eyes: Normal Pupils: PERRL - Respiratory Respiratory status: No respiratory distress Breath sounds: Normal - Cardiovascular Rhythm: Regular Heart sounds: Normal auscultation Murmur: No - Abdominal Distension: Distended Bowel sounds: Hypoactive Tenderness: Tender - Patient is very tender in the left abdomen just above the umbilicus down toward the left lower quadrant. It is most tender just to the left of the umbilicus where the transition was seen on CT on 01/17/2017. - Back Back: Normal - Extremities General upper extremity: Normal inspection General lower extremity: Normal inspection - Neurological Neuro grossly intact: Yes - Psychological Associated symptoms: Normal affect, Normal mood - Skin Skin Temperature: Warm Skin Moisture: Dry Skin Color: Normal <HOMER MANZANARES - Last Filed: 01/30/17 16:42> <ZULEMA LAINEZ - Last Filed: 01/30/17 20:02> - Vital signs Vitals: Temp Pulse Resp BP Pulse Ox 97.6 F 113 H 22 H 116/75 100 01/30/17 05:27 01/30/17 05:27 01/30/17 05:27 01/30/17 05:27 01/30/17 05:27 - General Notes: The patient did receive IV medications for pain and nausea prior to my seeing her and she states she is feeling considerably better than when she first presented. By history she was actively vomiting when she arrived. (HOMER MANZANARES) Course - Laboratory Result Diagrams: 01/30/17 05:56 01/30/17 05:56 - Diagnostic Test Radiology reviewed: Image reviewed, Reports reviewed - Acute abdominal series suggests a distal small bowel obstruction. - Consults Dr. Rivera Consulted provider: other - We will accept at the [facility] as an ER to ER transfer. - Transfer of Care Care transferred to following provider: Dr. Lainez <HOMER MANZANARES - Last Filed: 01/30/17 16:42> - Laboratory Result Diagrams: 01/30/17 05:56 01/30/17 05:56 <ZULEMA LAINEZ - Last Filed: 01/30/17 20:02> - Re-evaluation Re-evalutation: 01/30/17 11:28 I talked to the IA in [facility] transfer center, they were going to page the surgeon education administrative assistant. That was at 8:50 AM this morning. It is now 11:30 AM and the surgeon has never called back. I called again and ask for an educational administrator and the educational administrator person stated I need to send a transfer package which we do not have as far as I know so they will fax one to me. The first pad machine operator I talked to at 850 this morning never mentioned the need for transfer package and I was under the impression and needed to speak to an accepting physician before a transfer could be started. They will fax me a transfer package now to be filled out. (HOMER MANZANARES) 01/30/17 20:02 Stable for transport at this time (ZULEMA LAINEZ) - Vital Signs Vital signs: Temp Pulse Resp BP Pulse Ox 98.3 F 84 16 100/64 95 01/30/17 19:54 01/30/17 19:54 01/30/17 19:54 01/30/17 19:54 01/30/17 19:54 - Laboratory Laboratory results interpreted by me: 01/30/17 01/30/17 05:56 05:56 MCV 78 L MCH 25.9 L RDW 17.7 H Glucose 126 H Calcium 10.3 H Lipase 533.3 H - Transfer of Care Notes: 01/30/17 16:43 Will manage the patient in the emergency room pending her transfer to the [facility]. Patient has been accepted, and is only waiting on transportation arrangements at this time. (HOMER MANZANARES)
--- NOTE | 2017-01-30 08:07 | RADIOLOGY REPORT (SQ) ---
EXAM DESCRIPTION: ACUTE ABDOMEN SERIES COMPLETED DATE/TIME: 01/30/2017 6:48 am REASON FOR STUDY: abdominal pain COMPARISON: Correlation made to CT from 01/17/2017 NUMBER OF VIEWS: Three views. TECHNIQUE: Frontal chest, supine abdomen and upright/decubitus abdomen radiographic images acquired. LIMITATIONS: None. FINDINGS: CHEST: Lungs clear of infiltrates. Gastric pull-through again noted with air-fluid level. FREE AIR: None. No abnormal gas collections. BOWEL GAS PATTERN: Distended loops of small bowel with air-fluid levels suspicious for obstruction. CALCIFICATIONS: No suspicious calcifications. HARDWARE: None in the abdomen. SOFT TISSUES: No gross mass or suggestion of organomegaly. BONES: No acute fracture. No worrisome bone lesions. OTHER: No other significant finding. IMPRESSION: RADIOGRAPHIC FINDINGS CONCERNING FOR DISTAL SMALL BOWEL OBSTRUCTION. NO FREE AIR. TECHNICAL DOCUMENTATION: JOB ID: [id number] [employer]- All Rights Reserved
[2017-01-30] MEDS ORDERED: ONDANSETRON HCL INJ/PF 4 MG/2 ML SDV IV ONE ×2 (08:43→13:48)
[2017-01-30] MEDS: HYDROMORPHONE HCL INJ/PF 2 MG/ML AMPULE IV PRN ×4 (10:46→18:10)
[2017-01-30] MEDS ORDERED: DEXTROSE 5%-LACTATED RINGERS 1,000 ML IV ONE (15:24)
[2017-01-30] MEDS ORDERED: ONDANSETRON HCL INJ/PF 4 MG/2 ML SDV IV PRN (16:41)
[2017-01-30 19:41] VITALS: BP 100/64
== END 2017-01-30 19:50 ==
LOC: ER 05:19
DX: K56.609 Unspecified intestinal obstruction, unspecified as to partial versus complete obstruction (principal); R10.9 Unspecified abdominal pain; R11.2 Nausea with vomiting, unspecified
CPT/HCPCS: 96376; 99285; 96372; 96361; 96374; 96375; 36415; 83690; 85025; 80053; 74022; J1170; J2550; J2405; J7030

== ENCOUNTER 2017-05-09 20:57 | Emergency (ER) | payer OTHER ==
[2017-05-09 22:28] LABS: APPEARANCE,URINE SLIGHTLY-CLOUDY; BILIRUBIN,URINE NEGATIVE (NEGATIVE); COLOR,URINE YELLOW; GLUCOSE, URINE 150 mg/dL (NEGATIVE); KETONES,URINE NEGATIVE (NEGATIVE); LEUKOCYTE ESTERASE,URINE TRACE (NEGATIVE); NITRITE,URINE NEGATIVE (NEGATIVE); PROTEIN,URINE 30 mg/dL (NEGATIVE)
[2017-05-09] MEDS ORDERED: NORMAL SALINE 1000 ML 1,000 ML IV ONE (23:28)
[2017-05-09] MEDS ORDERED: ONDANSETRON HCL INJ/PF 4 MG/2 ML SDV IV ONE (23:28)
[2017-05-09 23:32] LABS: ALANINE AMINOTRANSFERASE 16 U/L (9-52); ALBUMIN 3.9 g/dL (3.5-5.0); ALKALINE PHOSPHATASE 89 U/L (38-126); ANION GAP 9 (5-19); ASPARTATE AMINO TRANSFERASE 18 U/L (14-36); BILIRUBIN,DIRECT 0.2 mg/dL (0.0-0.4); BILIRUBIN,TOTAL 0.2 mg/dL (0.2-1.3); BLOOD UREA NITROGEN 22 mg/dL (7-20); CALCIUM 8.5 mg/dL (8.4-10.2); CARBON DIOXIDE 24 mmol/L (22-30); CHLORIDE 106 mmol/L (98-107); GLUCOSE 94 mg/dL (75-110); LIPASE 178.7 U/L (23-300); POTASSIUM 4.1 mmol/L (3.6-5.0); SODIUM 138.7 mmol/L (137-145); TOTAL PROTEIN 6.8 g/dL (6.3-8.2)
[2017-05-10] MEDS: MORPHINE SULFATE 10 MG/ML INJ IV PRN ×2 (00:12→01:50)
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
--- NOTE | 2017-05-10 00:55 | RADIOLOGY REPORT (SQ) ---
EXAM DESCRIPTION: CT ABDOMEN AND PELVIS WITH CONTRAST CLINICAL HISTORY: abdominal pain, vomiting COMPARISON: 05/10/2017 TECHNIQUE: CT of the abdomen and pelvis performed following IV administration of 74 mL of Isovue-370. DLP: 866.74 mGycm FINDINGS: Lung Bases: The visualized lung bases are clear. Bones: No destructive bone lesions identified. Abdomen: Liver: 2 regions of hypodensity are identified in the right hepatic lobe and one in hepatic segment VII measures 2.9 x 2.1 cm with peripheral nodular enhancement as well as central enhancement inferiorly. The lesion in hepatic segment measures 1.2 x 1.0 cm. No new abnormalities identified. Of these lesions demonstrate fill in on delayed images suggesting hemangioma. Gallbladder: Prior cholecystectomy. Spleen, Pancreas, and Adrenal Glands: The spleen, pancreas, and adrenal glands are unremarkable. Kidneys: The kidneys have normal size and contour without evidence of solid mass or hydronephrosis. Vasculature: The aorta and IVC have normal caliber and position. The portal vein is patent. The proximal visceral and renal arteries are patent. Stomach: Postoperative changes compatible with esophagectomy gastric pull-through identified. Other: No free intraperitoneal air. Prior hernia repair. No definite lymphadenopathy. Pelvis: Bladder: Urinary bladder is unremarkable. Bowel: No dilated loops of large or small bowel. Appendix: Normal appendix. Pelvis: Uterus is not enlarged. IMPRESSION: 1. No acute inflammatory or obstructive process identified. 2. Postoperative changes compatible with esophagectomy and gastric pull-through partially visualized. This exam was performed according to our departmental dose-optimization program, which includes automated exposure control, adjustment of the mA and/or kV according to patient size and/or use of iterative reconstruction technique.
[2017-05-10] MEDS ORDERED: HALOPERIDOL LACTATE INJ 5 MG/1 ML VIAL IV ONE (02:01)
[2017-05-10 02:51] VITALS: BP 106/58
== END 2017-05-10 02:51 | disposition home or self-care (01) ==
LOC: ER 20:57
DX: K31.84 Gastroparesis (principal); R10.13 Epigastric pain; R10.12 Left upper quadrant pain; R11.2 Nausea with vomiting, unspecified; R00.0 Tachycardia, unspecified; Z98.890 Other specified postprocedural states; Z91.040 Latex allergy status; Z88.5 Allergy status to narcotic agent; Z87.19 Personal history of other diseases of the digestive system; Z90.49 Acquired absence of other specified parts of digestive tract
CPT/HCPCS: 96376; 99284; 96361; 96374; 96375; 36415; 83690; 80076; 80048; 81001; 84484; 74177; J1630; J2270; J2405; J7030

== ENCOUNTER 2017-12-16 21:08 | Emergency (ER) | payer OTHER ==
[2017-12-16] MEDS ORDERED: NORMAL SALINE 1000 ML 1,000 ML IV ONE (21:37)
[2017-12-16] MEDS ORDERED: MORPHINE SULFATE 10 MG/ML INJ IV ONE (21:37)
--- NOTE | 2017-12-16 21:43 | ER Document Report ---
ED General - General Chief Complaint: Drainage Stated Complaint: FEEDING TUBE PAIN Time Seen by Provider: 12/16/17 21:26 Notes: Patient is a 37-year-old female that comes to the emergency department for chief complaint of worsening abdominal pain for the past 3 days, pain is centered mainly around the G-tube area, she had the gastric tube placed on November 09 at the [facility]. She also reports she is starting to develop a discolored yellowish discharge from around the tube into the dressing. Secondarily patient notes that she has had over 10 episodes of diarrhea over the past day, nonbloody, she has been on antibiotics for the past month. Imodium not helping. No history of C. difficile. She denies fever or chills, nausea or vomiting. 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 TRAVEL OUTSIDE OF THE [place] IN LAST 30 DAYS: No - Related Data Allergies/Adverse Reactions: latex [Latex] Allergy (Severe, Verified 12/16/17 21:48) Hives hydrocodone bitartrate [From Lortab] Allergy (Mild, Verified 12/16/17 21:48) Urticaria tramadol HCl [From Ultram] Allergy (Verified 12/16/17 21:48) Past Medical History - General Information source: Patient, Relative - Social History Smoking Status: Never Smoker Frequency of alcohol use: None Drug Abuse: None Lives with: Family Family History: Reviewed & Not Pertinent - Past Medical History Cardiac Medical History: Denies: Hx Heart Attack, Hx Hypertension Pulmonary Medical History: Reports: Hx Asthma, Hx Pneumonia - asipration pneumonia x4 Denies: Hx Bronchitis, Hx COPD Neurological Medical History: Denies: Hx Cerebrovascular Accident, Hx Seizures Renal/ Medical History: Denies: Hx Peritoneal Dialysis GI Medical History: Reports: Hx Gastroesophageal Reflux Disease, Hx Endoscopy Musculoskeletal Medical History: Reports Hx Arthritis Past Surgical History: Reports: Hx Abdominal Surgery - j-tube placement, Hx Section - x's2, Hx Cholecystectomy, Hx Gynecologic Surgery - "various" . Denies: Hx Hysterectomy - Immunizations Hx Diphtheria, Pertussis, Tetanus Vaccination: Yes Review of Systems - Review of Systems Constitutional: No symptoms reported EENT: No symptoms reported Cardiovascular: No symptoms reported Respiratory: No symptoms reported Gastrointestinal: See HPI Genitourinary: No symptoms reported Female Genitourinary: No symptoms reported Musculoskeletal: No symptoms reported Skin: No symptoms reported Hematologic/Lymphatic: No symptoms reported Neurological/Psychological: No symptoms reported Physical Exam - Vital signs Vitals: Temp Pulse Resp BP Pulse Ox 98.2 F 107 H 16 129/87 H 96 12/16/17 21:14 12/16/17 21:14 12/16/17 21:14 12/16/17 21:14 12/16/17 21:14 - Notes Notes: GENERAL: Alert, interacts well. No acute distress. HEAD: Normocephalic, atraumatic. EYES: Pupils equal, round, and reactive to light. Extraocular movements intact. ENT: Oral mucosa moist, tongue midline. Oropharynx unremarkable. Airway patent. Nares patent, no nasal septal hematoma, TM's intact. NECK: Full range of motion. Supple. Trachea midline. LUNGS: Clear to auscultation bilaterally, no wheezes, rales, or rhonchi. No respiratory distress. HEART: Regular rate and rhythm. No murmur ABDOMEN: J-tube present in the left mid abdomen. There is tenderness around this but no guarding, there is no discharge, no erythema, no induration or fluctuance. Remaining abdomen is soft and benign. GENITOURINARY: Deferred EXTREMITIES: Moves all 4 extremities spontaneously. No edema, normal radial and dorsalis pedis pulses bilaterally. No cyanosis. BACK: no cervical, thoracic, lumbar midline tenderness. No saddle anesthesia, normal distal neurovascular exam. NEUROLOGICAL: Alert and oriented x3. Normal speech. [cranial nerves II through XII grossly intact]. PSYCH: Normal affect, normal mood. SKIN: Warm, dry, normal turgor. No rashes or lesions noted. Course - Re-evaluation Re-evalutation: Patient is well-appearing, talkative, alert. Borderline tachycardia. There is tenderness around the J-tube in the mid left abdomen but no discharge, erythema , induration, fluctuance noted. No fever. CBC unremarkable, chemistry unremarkable, urinalysis unremarkable. Patient did not have additional diarrhea here and as result this was unable to be tested. Patient is telling me that she had an imaging (KUB) of the tube and the balloon was not visualized. She states that since that time she has had increasing pain. I suspect this popped. Sutures also came out already. Discussed with patient potential removal of the area with placement of a functional balloon so she would not have large amount of movement and irritation. Will provide with barrier cream because of the movement/irritation to the area. Discussed with Dr. Chandra. When the J-tube was removed it was clear that the balloon had popped, no fluid was able to be aspirated from the balloon and the balloon was completely flat after removal. Some discomfort with removal, after removal symptoms resolved. New tube was placed without difficulty. After removal of the first tube patient reports abdominal pain has resolved. KUB with Gastrogram was performed which shows good placement in the jejunum and no extravasation or complication noted. On reevaluation again patient states she is symptom-free. Patient has good close follow-up on Tuesday with gastroenterology. Discussed expectations, follow-up, and return precautions. Patient states understanding and agreement. - Vital Signs Vital signs: Temp Pulse Resp BP Pulse Ox 98.6 F 86 16 132/94 H 95 12/17/17 02:25 12/17/17 02:25 12/17/17 02:25 12/17/17 02:25 12/17/17 02:25 - Laboratory Result Diagrams: 12/16/17 20:04 12/16/17 20:04 Laboratory results interpreted by me: 12/16/17 12/16/17 12/16/17 20:04 20:04 20:04 MCV 79 L MCH 26.0 L RDW 16.2 H Chloride 108 H Urine Urobilinogen 2.0 H Ur Leukocyte Esterase TRACE H Procedures - Additional Procedures Gastric tube replacement Additional Procedures: Gastric tube replacement - Unable to obtain any cc of fluid from the gastric tube, this was easily removed and noted to be dysfunctional with a flat balloon. Mild discomfort with removal. No bleeding or purulent drainage. Under sterile technique the area was cleaned, a 14 [place] gastric tube was placed into the ostomy, 5 cc of balloon inflated, good placement. Confirmed with gastrogram. No complications. Discharge - Discharge Clinical Impression: Jejunostomy tube site pain Abdominal pain Qualifiers: Abdominal location: generalized Qualified Code(s): R10.84 - Generalized abdominal pain Condition: Stable Disposition: HOME, SELF-CARE Additional Instructions: Your laboratory workup does not show any concerning abnormalities. Your previous tube had a balloon that had failed. This appears to have caused irritation with movement. This probably contributed to your pain. The newly placed J-tube is in appropriate position per x-ray confirmation with contrast. Follow-up closely with your surgeon for additional evaluation and management. Return for any concerning symptoms including abdominal pain/swelling, developing redness from the area, vomiting, fever 100.4 or greater, or any other concerning symptoms.
[2017-12-16 22:21] LABS: ABSOLUTE EOSINOPHILS # (AUTO) 0.2 10^3/uL (0.0-0.6); ABSOLUTE LYMPHOCYTES (AUTO) 2.5 10^3/uL (0.5-4.7); ABSOLUTE MONOCYTES (AUTO) 0.8 10^3/uL (0.1-1.4); ABSOLUTE NEUT (AUTO) 3.4 10^3/uL (1.7-8.2); BASOPHILS % (AUTO) 0.6 % (0-2); EOSINOPHILS % (AUTO) 3.2 % (0-6); HEMATOCRIT 36.7 % (36.0-47.0); MEAN CORPUSCULAR HGB CONC 32.8 g/dL (32.0-36.0); MEAN CORPUSCULAR VOLUME 79 fl (80-97); MONOCYTES % (AUTO) 11.4 % (3-13); PLATELET COUNT 303 10^3/uL (150-450); RED BLOOD COUNT 4.64 10^6/uL (3.72-5.28); RED CELL DISTRIBUTION WIDTH 16.2 % (11.5-14.0); SEGMENTED NEUTROPHILS % (AUTO) 48.8 % (42-78); TOTAL CELLS COUNTED % (AUTO) 100 %
[2017-12-16 22:27] LABS: APPEARANCE,URINE SLIGHTLY-CLOUDY; BILIRUBIN,URINE NEGATIVE (NEGATIVE); COLOR,URINE YELLOW; GLUCOSE, URINE NEGATIVE (NEGATIVE); KETONES,URINE NEGATIVE (NEGATIVE); LEUKOCYTE ESTERASE,URINE TRACE (NEGATIVE); NITRITE,URINE NEGATIVE (NEGATIVE); PROTEIN,URINE NEGATIVE (NEGATIVE); URINE SPECIFIC GRAVITY 1.023
[2017-12-16 22:34] LABS: ALANINE AMINOTRANSFERASE 44 U/L (9-52); ALBUMIN 4.2 g/dL (3.5-5.0); ALKALINE PHOSPHATASE 111 U/L (38-126); ANION GAP 12 (5-19); ASPARTATE AMINO TRANSFERASE 25 U/L (14-36); BILIRUBIN,DIRECT 0.3 mg/dL (0.0-0.4); BILIRUBIN,TOTAL 0.3 mg/dL (0.2-1.3); BLOOD UREA NITROGEN 12 mg/dL (7-20); CALCIUM 8.9 mg/dL (8.4-10.2); CARBON DIOXIDE 22 mmol/L (22-30); CHLORIDE 108 mmol/L (98-107); GLUCOSE 86 mg/dL (75-110); LIPASE 68.1 U/L (23-300); POTASSIUM 4.4 mmol/L (3.6-5.0); SODIUM 141.6 mmol/L (137-145); TOTAL PROTEIN 6.9 g/dL (6.3-8.2)
[2017-12-16] MEDS ORDERED: ZINC OXIDE 20% OINTMENT 28.35 GM TP ONE (22:54)
[2017-12-16] MEDS ORDERED: FENTANYL CITRATE INJ/PF 100 MCG/2 ML AMPUL IV ONE (23:01)
[2017-12-17] MEDS ORDERED: HYDROMORPHONE HCL INJ/PF 2 MG/ML AMPULE IV ONE (00:34)
[2017-12-17] MEDS ORDERED: HYDROMORPHONE HCL INJ/PF 2 MG/ML AMPULE ONE (00:34)
[2017-12-17] MEDS ORDERED: ONDANSETRON HCL INJ/PF 4 MG/2 ML SDV IV ONE (00:55)
[2017-12-17] MEDS ORDERED: ZINC OXIDE 20% OINTMENT 28.35 GM ONE (01:01)
--- NOTE | 2017-12-17 01:45 | RADIOLOGY REPORT (SQ) ---
EXAM DESCRIPTION: XR ABDOMEN 1 VIEW (KUB) COMPLETED DATE/TME: 12/17/2017 00:40 CLINICAL HISTORY: 37 years, Female, contrast s/p G-tube placement COMPARISON: None. NUMBER OF VIEWS: TECHNIQUE: LIMITATIONS: None. FINDINGS: A single x-ray of the abdomen was obtained, following injection of water-soluble contrast material into the patient's jejunostomy tube. The tip of the jejunostomy tube is in the jejunum. There is no evidence of contrast extravasation. IMPRESSION: The tip of the jejunostomy tube is in the jejunal lumen. 2011 [employer]- All Rights Reserved
[2017-12-17] MEDS ORDERED: HYDROCODONE/ACETAMINOPHEN 5-325 MG (6 TAB/ER DISP) PO PRN (02:22)
[2017-12-17] MEDS ORDERED: HYDROCODONE/ACETAMINOPHEN 5-325 MG (6 TAB/ER DISP) ONE (02:23)
[2017-12-17 02:26] VITALS: BP 132/94
== END 2017-12-17 02:28 | disposition home or self-care (01) ==
LOC: ER 21:08
DX: T85.848A Pain due to other internal prosthetic devices, implants and grafts, initial encounter (principal); Y73.8 Miscellaneous gastroenterology and urology devices associated with adverse incidents, not elsewhere classified; Y83.3 Surgical operation with formation of external stoma as the cause of abnormal reaction of the patient, or of later complication, without mention of misadventure at the time of the procedure; R10.84 Generalized abdominal pain; R19.7 Diarrhea, unspecified; I82.220 Acute embolism and thrombosis of inferior vena cava; Z79.01 Long term (current) use of anticoagulants; Z79.2 Long term (current) use of antibiotics; Z90.49 Acquired absence of other specified parts of digestive tract; Z87.19 Personal history of other diseases of the digestive system; Z91.040 Latex allergy status; Z88.5 Allergy status to narcotic agent
CPT/HCPCS: 99284; 96361; 96374; 96375; 36415; 83690; 85025; 80053; 81001; 74018; 43760; J3010; J2270; J1170; J2405; J3490; J7030

== ENCOUNTER 2018-01-15 17:02 | Emergency (ER) | payer OTHER ==
--- NOTE | 2018-01-15 17:29 | ER Document Report ---
ED Medical Screen (RME) - General Chief Complaint: Incision Drainage Stated Complaint: POSSIBLE INFECTION Time Seen by Provider: 01/15/18 17:14 TRAVEL OUTSIDE OF THE [place] IN LAST 30 DAYS: No - HPI Notes: 01/15/18 17:28 Patient coming in for drainage around J-tube. States placed at the [facility] due to severe gastroparesis large amount of drainage that was yellow possibly pus earlier today - Related Data Allergies/Adverse Reactions: latex [Latex] Allergy (Severe, Verified 01/15/18 17:11) Hives hydrocodone bitartrate [From Lortab] Allergy (Mild, Verified 01/15/18 17:11) Urticaria tramadol HCl [From Ultram] Allergy (Verified 01/15/18 17:11) Past Medical History - Social History Frequency of alcohol use: Occasional Drug Abuse: None - Past Medical History Cardiac Medical History: Denies: Hx Heart Attack, Hx Hypertension Pulmonary Medical History: Reports: Hx Asthma, Hx Pneumonia - asipration pneumonia x8-9 Denies: Hx Bronchitis, Hx COPD Neurological Medical History: Denies: Hx Cerebrovascular Accident, Hx Seizures Renal/ Medical History: Denies: Hx Peritoneal Dialysis GI Medical History: Reports: Hx Gastroesophageal Reflux Disease, Hx Endoscopy Musculoskeltal Medical History: Reports Hx Arthritis Past Surgical History: Reports: Hx Abdominal Surgery - j-tube placement, repair of bowel obstruction, hernia repair, Hx Section - x2, Hx Cholecystectomy, Hx Gynecologic Surgery - "various". Denies: Hx Hysterectomy - Immunizations Hx Diphtheria, Pertussis, Tetanus Vaccination: Yes Review of Systems - Review of Systems Gastrointestinal: Other - Possible abscess Physical Exam - Vital signs Vitals: Temp Pulse Resp BP Pulse Ox 98.2 F 90 16 115/78 100 01/15/18 17:13 01/15/18 17:13 01/15/18 17:13 01/15/18 17:13 01/15/18 17:13 - Abdominal Notes: J-tube with feeds going through it with a scant amount of yellowish drainage along the opening near the midline significantly tender to palpation Course - Vital Signs Vital signs: Temp Pulse Resp BP Pulse Ox 98.2 F 90 16 115/78 100 01/15/18 17:13 01/15/18 17:13 01/15/18 17:13 01/15/18 17:13 01/15/18 17:13
[2018-01-15 17:59] LABS: ABSOLUTE EOSINOPHILS # (AUTO) 0.2 10^3/uL (0.0-0.6); ABSOLUTE LYMPHOCYTES (AUTO) 2.9 10^3/uL (0.5-4.7); ABSOLUTE NEUT (AUTO) 4.8 10^3/uL (1.7-8.2); BASOPHILS % (AUTO) 0.4 % (0-2); EOSINOPHILS % (AUTO) 2.3 % (0-6); HEMOGLOBIN 12.1 g/dL (12.0-15.5); LYMPHOCYTES % (AUTO) 32.8 % (13-45); MEAN CORPUSCULAR HEMOGLOBIN 25.6 pg (27.0-33.4); MEAN CORPUSCULAR HGB CONC 32.7 g/dL (32.0-36.0); MEAN CORPUSCULAR VOLUME 78 fl (80-97); MONOCYTES % (AUTO) 10.7 % (3-13); PLATELET COUNT 314 10^3/uL (150-450); RED BLOOD COUNT 4.73 10^6/uL (3.72-5.28); RED CELL DISTRIBUTION WIDTH 15.4 % (11.5-14.0); SEGMENTED NEUTROPHILS % (AUTO) 53.8 % (42-78); TOTAL CELLS COUNTED % (AUTO) 100 %; WHITE BLOOD COUNT 8.9 10^3/uL (4.0-10.5)
[2018-01-15 18:17] LABS: ANION GAP 14 (5-19); BLOOD UREA NITROGEN 17 mg/dL (7-20); CALCIUM 9.6 mg/dL (8.4-10.2); CARBON DIOXIDE 25 mmol/L (22-30); CHLORIDE 103 mmol/L (98-107); GLUCOSE 79 mg/dL (75-110); POTASSIUM 4.1 mmol/L (3.6-5.0)
--- NOTE | 2018-01-15 19:40 | RADIOLOGY REPORT (SQ) ---
EXAM DESCRIPTION: CT ABD/PELVIS WITH IV ONLY COMPLETED DATE/TIME: 01/15/2018 7:30 pm REASON FOR STUDY: j tube drainage ? abscess formation COMPARISON: 05/10/2017 TECHNIQUE: CT scan of the abdomen and pelvis performed using helical scanning technique with dynamic intravenous contrast injection. No oral contrast. Images reviewed with lung, soft tissue, and bone windows. Reconstructed coronal and sagittal MPR images reviewed. Delayed images for evaluation of the urinary system also acquired. All images stored on PACS. All CT scanners at this facility use dose modulation, iterative reconstruction, and/or weight based d osing when appropriate to reduce radiation dose to as low as reasonably achievable (ALARA). [facility]: Dose Right [facility]: CareDose [facility]: Dose Right [facility]: Teradose 4D [facility]: Smart [employer] CONTRAST TYPE AND DOSE: Not recorded not recorded RENAL FUNCTION: None required. The patient is less than 50 years old. RADIATION DOSE: CT Rad equipment meets quality standard of care and radiation dose reduction techniq ues were employed. CTDIvol: 9.9 - 13.0 mGy. DLP: 1181 mGy-cm.. LIMITATIONS: None. FINDINGS: LOWER CHEST: Surgical changes of gastric pull-through. LIVER: Hemangioma stable. No worrisome masses. 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 SPLEEN: Normal size. No focal lesions. PANCREAS: No masses. No significant calcifications. No adjacent inflammation or peripancreatic fluid collections. Pancreatic duct not dilated. GALLBLADDER: Surgically absent. ADRENAL GLANDS: No significant masses or asymmetry. RIGHT KIDNEY AND URETER: No solid masses. No significant calcifications. No hydronephrosis or hyd roureter. LEFT KIDNEY AND URETER: No solid masses. No significant calcifications. No hydronephrosis or hydr oureter. AORTA AND VESSELS: No aneurysm. No dissection. Renal arteries, SMA, celiac without stenosis. RETROPERITONEUM: No retroperitoneal adenopathy, hemorrhage or masses. BOWEL AND PERITONEAL CAVITY: No masses or inflammatory changes. Enterostomy tube. APPENDIX: Normal. PELVIS: No mass. No free fluid. Normal bladder. ABDOMINAL WALL: No masses. No hernias. BONES: No significant or acute findings. OTHER: No other significant finding. IMPRESSION: Surgical changes including gastric pull-through. 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 Enterostomy tube. TECHNICAL DOCUMENTATION: JOB ID: [id number] Quality ID # [id number]: Final reports with documentation of one or more dose reduction techniques (e.g., Au tomated exposure control, adjustment of the mA and/or kV according to patient size, use of iterative reconstruction technique) 2010 [employer]- All Rights Reserved Reading location - IP/workstation name: [email or web address]
--- NOTE | 2018-01-15 20:50 | ER Document Report ---
ED General - General Chief Complaint: Incision Drainage Stated Complaint: POSSIBLE INFECTION Time Seen by Provider: 01/15/18 17:14 Mode of Arrival: Ambulatory Information source: Patient Notes: This is a 37-year-old female with a complicated GI history including gastroparesis requiring G-tube. Patient states she will normally left the G- tube area with the Often when she did that she experienced pus drainage around the base of the G-tube. She also states that it is a little bit more red and tender around the base of the G-tube. She denies any abdominal pain. She denies fever. She denies any other illnesses. She states that she is not sure whether it came from the GI contents itself or from around the tube site, but states that since closing it off she has had some discharge around the tube site. TRAVEL OUTSIDE OF THE [place] IN LAST 30 DAYS: No - HPI Onset: Just prior to arrival Onset/Duration: Gradual Quality of pain: Dull Severity: Mild Pain Level: 1 - Mild tenderness to palpation around the G-tube site Associated symptoms: denies: Fever, Vomiting, Shortness of breath Exacerbated by: Denies Relieved by: Denies Similar symptoms previously: No Recently seen / treated by doctor: Yes - Related Data Allergies/Adverse Reactions: latex [Latex] Allergy (Severe, Verified 01/15/18 17:11) Hives hydrocodone bitartrate [From Lortab] Allergy (Mild, Verified 01/15/18 17:11) Urticaria tramadol HCl [From Ultram] Allergy (Verified 01/15/18 17:11) Past Medical History - General Information source: Patient - Social History Smoking Status: Never Smoker Cigarette use (# per day): No Chew tobacco use (# tins/day): No Frequency of alcohol use: Occasional Drug Abuse: None Lives with: Family Family History: Reviewed & Not Pertinent Patient has suicidal ideation: No Patient has homicidal ideation: No - Past Medical History Cardiac Medical History: Denies: Hx Heart Attack, Hx Hypertension Pulmonary Medical History: Reports: Hx Asthma, Hx Pneumonia - asipration pneumonia x8-9 Denies: Hx Bronchitis, Hx COPD Neurological Medical History: Denies: Hx Cerebrovascular Accident, Hx Seizures Renal/ Medical History: Denies: Hx Peritoneal Dialysis GI Medical History: Reports: Hx Gastroesophageal Reflux Disease, Hx Endoscopy Musculoskeletal Medical History: Reports Hx Arthritis Past Surgical History: Reports: Hx Abdominal Surgery - j-tube placement, repair of bowel obstruction, hernia repair, Hx Section - x2, Hx Cholecystectomy, Hx Gynecologic Surgery - "various". Denies: Hx Hysterectomy - Immunizations Hx Diphtheria, Pertussis, Tetanus Vaccination: Yes Review of Systems - Review of Systems Constitutional: denies: Chills, Fever EENT: No symptoms reported Cardiovascular: No symptoms reported Respiratory: No symptoms reported Gastrointestinal: See HPI Genitourinary: No symptoms reported Female Genitourinary: No symptoms reported Musculoskeletal: No symptoms reported Skin: See HPI Hematologic/Lymphatic: No symptoms reported Neurological/Psychological: No symptoms reported Physical Exam - Vital signs Vitals: Temp Pulse Resp BP Pulse Ox 98.2 F 90 16 115/78 100 01/15/18 17:13 01/15/18 17:13 01/15/18 17:13 01/15/18 17:13 01/15/18 17:13 Notes: Physical exam: GENERAL: She is alert and oriented x3, no acute distress HEAD: Atraumatic, normocephalic. EYES: Pupils equal round and reactive to light, extraocular movements intact, sclera anicteric, conjunctiva are normal. ENT: TMs normal, nares patent, oropharynx clear without exudates. Moist mucous membranes. NECK: Normal range of motion, supple without obvious mass or JVD. LUNGS: Breath sounds clear to auscultation bilaterally and equal. No wheezes rales or rhonchi. HEART: Regular rate and rhythm without murmurs, rubs or gallops. ABDOMEN: Soft, normoactive bowel sounds. No tenderness to palpation. No guarding, no rebound. No masses appreciated. G-tube site: There is mild erythema around the G-tube. When the dressings were removed there was some mild pussy drainage around the tube. There is nothing expressible from the tube site and the surrounding skin. There is no fluctuance or evidence of abscess. EXTREMITIES: Normal range of motion, no pitting or edema. No clubbing or cyanosis. NEUROLOGICAL: Cranial nerves II through XII grossly intact. Normal speech, moving all extremities. PSYCH: Normal mood, normal affect. SKIN: Warm, Dry, normal turgor, no rashes or lesions noted. Course - Vital Signs Vital signs: Temp Pulse Resp BP Pulse Ox 98.5 F 80 18 110/75 100 01/15/18 20:57 12/09/18 20:57 01/15/18 20:57 01/15/18 20:57 01/15/18 20:57 - Laboratory Result Diagrams: 01/15/18 17:53 01/15/18 17:53 Laboratory results interpreted by me: 01/15/18 17:53 MCV 78 L MCH 25.6 L RDW 15.4 H - Diagnostic Test Radiology reviewed: Image reviewed, Reports reviewed - CT of the abdomen does not show any evidence of abscess pockets. Discharge - Discharge Clinical Impression: G-tube site infection Condition: Stable Disposition: HOME, SELF-CARE Additional Instructions: As we discussed, your labs look quite good today. The CT showed no abscess underneath the skin. Recommend taking the Keflex as prescribed. Continue with daily wound dressings. Follow-up with your surgeons as planned. Return to the emergency room for any concerns that the infection is getting worse: Increased redness, increased pain, fever or any concerns or getting worse. Prescriptions: Cephalexin Monohydrate [Keflex 500 mg Capsule] 500 mg PO Q6H 7 Days #28 capsule
[2018-01-15 20:59] VITALS: BP 110/75
== END 2018-01-15 20:55 | disposition home or self-care (01) ==
LOC: ER 17:02
DX: K94.22 Gastrostomy infection (principal); Z90.49 Acquired absence of other specified parts of digestive tract; Z91.040 Latex allergy status; Z88.6 Allergy status to analgesic agent
CPT/HCPCS: 36415; 74177; 80048; 85025; 99284

== ENCOUNTER 2018-12-20 15:33 | Emergency (ER) | payer OTHER ==
--- NOTE | 2018-12-20 15:47 | ER Document Report ---
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 Patient now has esophageal gastrectomy in place. Reports history of aspiration pneumonia. Has been treated by [facility] for the past 3 days with Levaquin steroids and neb treatments. Last treatment was 1100 today. Patient reports that with any type of activity or talking her O2 sat dropping down to 82% now. Patient feels shortness of breath. I have greeted and performed a rapid initial assessment of this patient. A comprehensive ED assessment and evaluation of the patient, analysis of test results and completion of the medical decision making process will be conducted by additional ED providers. Dictation of this chart was performed using voice recognition software; therefore, there may be some unintended grammatical errors. TRAVEL OUTSIDE OF THE [place] IN LAST 30 DAYS: No - Related Data Allergies/Adverse Reactions: latex [Latex] Allergy (Severe, Verified 07/23/18 08:31) Hives hydrocodone bitartrate [From Lortab] Allergy (Mild, Verified 07/23/18 08:31) Urticaria tramadol HCl [From Ultram] Allergy (Verified 07/23/18 08:31) Home Medications: Asthma medications Past Medical History - Past Medical History Cardiac Medical History: Denies: Hx Heart Attack, Hx Hypertension Pulmonary Medical History: Reports: Hx Asthma, Hx Pneumonia - asipration pneumonia x8-9 Denies: Hx Bronchitis, Hx COPD Neurological Medical History: Denies: Hx Cerebrovascular Accident, Hx Seizures Renal/ Medical History: Denies: Hx Peritoneal Dialysis GI Medical History: Reports: Hx Gastroesophageal Reflux Disease, Hx Endoscopy Musculoskeltal Medical History: Reports Hx Arthritis Past Surgical History: Reports: Hx Abdominal Surgery - j-tube placement, repair of bowel obstruction, hernia repair, Hx Section - x2, Hx Cholecystectomy, Hx Gynecologic Surgery - "various". Denies: Hx Hysterectomy - Immunizations Hx Diphtheria, Pertussis, Tetanus Vaccination: Yes Physical Exam - Vital signs Vitals: Temp Pulse Resp BP Pulse Ox 98.0 F 110 H 20 124/64 100 12/20/18 15:37 12/20/18 15:37 12/20/18 15:37 12/20/18 15:37 12/20/18 15:37 Course - Vital Signs Vital signs: Temp Pulse Resp BP Pulse Ox 98.0 F 110 H 20 124/64 100 12/20/18 15:37 12/20/18 15:37 12/20/18 15:37 12/20/18 15:37 12/20/18 15:37
[2018-12-20 16:08] LABS: ABSOLUTE LYMPHOCYTES (AUTO) 3.3 10^3/uL (0.5-4.7); ABSOLUTE MONOCYTES (AUTO) 1.5 10^3/uL (0.1-1.4); ABSOLUTE NEUT (AUTO) 8.6 10^3/uL (1.7-8.2); BASOPHILS % (AUTO) 0.3 % (0-2); EOSINOPHILS % (AUTO) 0.1 % (0-6); HEMATOCRIT 38.7 % (36.0-47.0); HEMOGLOBIN 12.6 g/dL (12.0-15.5); LYMPHOCYTES % (AUTO) 24.8 % (13-45); MEAN CORPUSCULAR HEMOGLOBIN 25.3 pg (27.0-33.4); MEAN CORPUSCULAR HGB CONC 32.4 g/dL (32.0-36.0); MEAN CORPUSCULAR VOLUME 78 fl (80-97); MONOCYTES % (AUTO) 11.4 % (3-13); PLATELET COUNT 371 10^3/uL (150-450); RED BLOOD COUNT 4.97 10^6/uL (3.72-5.28); RED CELL DISTRIBUTION WIDTH 17.4 % (11.5-14.0); SEGMENTED NEUTROPHILS % (AUTO) 63.4 % (42-78); TOTAL CELLS COUNTED % (AUTO) 100 %; WHITE BLOOD COUNT 13.5 10^3/uL (4.0-10.5)
[2018-12-20 16:14] LABS: APPEARANCE,URINE SLIGHTLY-CLOUDY; BILIRUBIN,URINE NEGATIVE (NEGATIVE); CALCIUM OXALATE CRYSTALS,URINE MODERATE /HPF; COLOR,URINE YELLOW; GLUCOSE, URINE NEGATIVE (NEGATIVE); KETONES,URINE NEGATIVE (NEGATIVE); LEUKOCYTE ESTERASE,URINE TRACE (NEGATIVE); NITRITE,URINE NEGATIVE (NEGATIVE); PROTEIN,URINE NEGATIVE (NEGATIVE); URINE SPECIFIC GRAVITY 1.021
--- NOTE | 2018-12-20 16:17 | RADIOLOGY REPORT (SQ) ---
EXAM DESCRIPTION: CHEST 2 VIEWS COMPLETED DATE/TIME: 12/20/2018 4:08 pm REASON FOR STUDY: diff breathing, hx aspiration pneumo COMPARISON: 09/29/2016 EXAM PARAMETERS: NUMBER OF VIEWS: two views TECHNIQUE: Digital Frontal and Lateral radiographic views of the chest acquired. RADIATION DOSE: NA LIMITATIONS: none FINDINGS: LUNGS AND PLEURA: No opacities, masses or pneumothorax. No pleural effusion. MEDIASTINUM AND HILAR STRUCTURES: No masses or contour abnormalities. HEART AND VASCULAR STRUCTURES: Heart normal size. No evidence for failure. BONES: No acute findings. HARDWARE: None in the chest. OTHER: The patient has had a prior gastric pull-through. IMPRESSION: Postsurgical changes. The patient has had prior gastric pull-through. No focal consoli dation. TECHNICAL DOCUMENTATION: JOB ID: [id number] [employer]- All Rights Reserved Reading location - IP/workstation name: [email or web address]
[2018-12-20 16:29] LABS: ALBUMIN 4.4 g/dL (3.5-5.0); ALKALINE PHOSPHATASE 106 U/L (38-126); ANION GAP 11 (5-19); ASPARTATE AMINO TRANSFERASE 15 U/L (14-36); BILIRUBIN,DIRECT 0.2 mg/dL (0.0-0.4); BILIRUBIN,TOTAL 0.3 mg/dL (0.2-1.3); BLOOD UREA NITROGEN 16 mg/dL (7-20); CALCIUM 9.5 mg/dL (8.4-10.2); CARBON DIOXIDE 25 mmol/L (22-30); CHLORIDE 104 mmol/L (98-107); GLUCOSE 91 mg/dL (75-110); POTASSIUM 3.4 mmol/L (3.6-5.0); TOTAL PROTEIN 7.4 g/dL (6.3-8.2)
[2018-12-20] MEDS ORDERED: IPRATROPIUM/ALBUTEROL 0.5-2.5 MG/3 ML AMPUL NEB ONE (16:35)
--- NOTE | 2018-12-20 16:40 | ER Document Report ---
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 She has had a distant esophagectomy and stomach pull through. She has frequently had aspiration pneumonia and has frequent egd's. Over this past weekend cough and wheeze and sob. Using albuterol at home with some improvement and seen at [facility] first of week and again yesterday. Placed on levaquin and prednisone and still with some cough - nonproductive - and wheeze. Sat seems to drop at home. Wanted to be evaluated for that. TRAVEL OUTSIDE OF THE [place] IN LAST 30 DAYS: No - HPI Patient complains to provider of: Cough Quality of pain: Achy Severity: Moderate Pain Level: 2 Short of Breath: Moderate Chest pain/discomfort: Center, Right Sputum amount: None At home treatment: Bronchodilators, Oral steroids Associated symptoms: None - Related Data Allergies/Adverse Reactions: latex [Latex] Allergy (Severe, Verified 07/23/18 08:31) Hives hydrocodone bitartrate [From Lortab] Allergy (Mild, Verified 07/23/18 08:31) Urticaria tramadol HCl [From Ultram] Allergy (Verified 07/23/18 08:31) Home Medications: Asthma medications Past Medical History - General Information source: Patient - Social History Smoking Status: Never Smoker Family History: Reviewed & Not Pertinent Patient has suicidal ideation: No Patient has homicidal ideation: No - Past Medical History Cardiac Medical History: Denies: Hx Heart Attack, Hx Hypertension Pulmonary Medical History: Reports: Hx Asthma, Hx Pneumonia - asipration pneumonia x8-9 Denies: Hx Bronchitis, Hx COPD Neurological Medical History: Denies: Hx Cerebrovascular Accident, Hx Seizures Renal/ Medical History: Denies: Hx Peritoneal Dialysis GI Medical History: Reports: Hx Gastroesophageal Reflux Disease, Hx Endoscopy Musculoskeletal Medical History: Reports Hx Arthritis Past Surgical History: Reports: Hx Abdominal Surgery - j-tube placement, repair of bowel obstruction, hernia repair, Hx Section - x2, Hx Cholecystectomy, Hx Gynecologic Surgery - "various". Denies: Hx Hysterectomy - Immunizations Hx Diphtheria, Pertussis, Tetanus Vaccination: Yes Review of Systems - Review of Systems Constitutional: No symptoms reported EENT: No symptoms reported Cardiovascular: No symptoms reported Respiratory: No symptoms reported Gastrointestinal: No symptoms reported Genitourinary: No symptoms reported Female Genitourinary: No symptoms reported Musculoskeletal: No symptoms reported Skin: No symptoms reported Hematologic/Lymphatic: No symptoms reported Neurological/Psychological: No symptoms reported Physical Exam - Vital signs Vitals: Temp Pulse Resp BP Pulse Ox 98.0 F 110 H 20 124/64 100 12/20/18 15:37 12/20/18 15:37 12/20/18 15:37 12/20/18 15:37 12/20/18 15:37 Interpretation: Normal - General General appearance: Appears well, Alert - HEENT Head: Normocephalic, Atraumatic Eyes: Normal Pupils: PERRL - Respiratory Respiratory status: No respiratory distress Chest status: Nontender Breath sounds: Normal Chest palpation: Normal - Cardiovascular Rhythm: Regular Heart sounds: Normal auscultation Murmur: No - Abdominal Inspection: Normal Distension: No distension Bowel sounds: Normal Tenderness: Nontender Organomegaly: No organomegaly - Back Back: Normal, Nontender - Extremities General upper extremity: Normal inspection, Nontender, Normal color, Normal ROM, Normal temperature General lower extremity: Normal inspection, Nontender, Normal color, Normal ROM, Normal temperature, Normal weight bearing. 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 12/20/18 21:09 CT of the chest due to tachycardia and hypoxia with h/o clotting in the past. Ct reviewed with her and and discussed follow up. They both expressed understanding. - Vital Signs Vital signs: Temp Pulse Resp BP Pulse Ox 98.4 F 75 16 137/90 H 96 12/20/18 19:46 12/20/18 19:46 12/20/18 19:46 12/20/18 19:46 12/20/18 19:46 - Laboratory Result Diagrams: 12/20/18 15:57 12/20/18 15:57 Laboratory results interpreted by me: 12/20/18 12/20/18 12/20/18 15:57 15:57 15:57 WBC 13.5 H MCV 78 L MCH 25.3 L RDW 17.4 H Absolute Neuts (auto) 8.6 H Absolute Monos (auto) 1.5 H Carbonic Acid ABG pCO2 ABG pO2 Potassium 3.4 L Urine Urobilinogen 2.0 H Ur Leukocyte Esterase TRACE H 12/20/18 16:50 WBC MCV MCH RDW Absolute Neuts (auto) Absolute Monos (auto) Carbonic Acid 1.04 L ABG pCO2 34.4 L ABG pO2 79.6 L Potassium Urine Urobilinogen Ur Leukocyte Esterase Discharge - Discharge Clinical Impression: Bronchitis Condition: Good Disposition: HOME, SELF-CARE Instructions: Bronchitis ([facility]), Bronchitis With Bronchospasm (Wheezing) ([facility]) Additional Instructions: Continue with breathing treatments. Rest. Please return here for any problems or any concerns. Prescriptions: Ipratropium/Albuterol Sulfate [Duoneb 3 ml Ampul] 3 ml NEB [id number] 10 Days #1 bottle Cephalexin Monohydrate [Keflex 500 mg Capsule] 500 mg PO TID #30 capsule Azithromycin [Zithromax 250 mg Tablet] 250 mg PO ASDIR PRN #6 tablet PRN Reason: Referrals: SAFIA MARY MD [Primary Care Provider] - Follow up as needed
[2018-12-20] MEDS ORDERED: POTASSIUM CHLORIDE 10 MEQ CAPSULE.ER PO ONE (16:41)
[2018-12-20 17:19] LABS: ARTERIAL BLOOD BASE EXCESS -1.6 mmol/L; ARTERIAL BLOOD FIO2 ROOM AIR; ARTERIAL BLOOD H2CO3 1.04 mmol/L (1.05-1.35); ARTERIAL BLOOD HCO3 22.2 mmol/L (20-24); ARTERIAL BLOOD O2 SATURATION 96.1 % (94-98); ARTERIAL BLOOD PCO2 34.4 mmHg (35-45); ARTERIAL BLOOD PH 7.43 (7.35-7.45); ARTERIAL BLOOD PO2 79.6 mmHg (80-100); ARTERIAL BLOOD TOTAL CO2 23.2 mmol/L (21-25)
--- NOTE | 2018-12-20 19:18 | RADIOLOGY REPORT (SQ) ---
EXAM DESCRIPTION: CTA CHEST COMPLETED DATE/TIME: 12/20/2018 6:59 pm REASON FOR STUDY: sob/ cough COMPARISON: 01/17/2017 TECHNIQUE: CT scan of the chest performed using helical scanning technique with dynamic intravenous contrast injection. Images reviewed with lung, soft tissue and bone windows. Reconstructed coronal and sagittal MPR images reviewed. Additional 3 dimensional post-processing performed to develop Maximal Intensity Projection images (HI P). All images stored on PACS. All CT scanners at this facility use dose modulation, iterative reconstruction, and/or weight based d osing when appropriate to reduce radiation dose to as low as reasonably achievable (ALARA). [facility]: Dose Right [facility]: CareDose [facility]: Dose Right [facility]: Teradose 4D [facility]: [employer] CONTRAST TYPE AND DOSE: contrast/concentration: Isovue 350.00 mg/ml; Total Contrast Delivered: 65.0 ml; Total Saline Delivered: 65.6 ml Contrast bolus adequate for pulmonary arteries and aorta. RENAL FUNCTION: BUN 16 creatinine 0.8 RADIATION DOSE: CT Rad equipment meets quality standard of care and radiation dose reduction techniq ues were employed. CTDIvol: 6.6 - 19.8 mGy. DLP: 553 mGy-cm. . LIMITATIONS: None. FINDINGS: LUNGS AND PLEURA: No pulmonary mass or infiltrate. Prior gastric pull-through procedure. Diaphragmatic hernia containing portion of the liver. AORTA AND GREAT VESSELS: No aneurysm. No dissection. HEART: No pericardial effusion. No significant coronary artery calcifications. PULMONARY ARTERIES: No emboli visualized in the main pulmonary arteries or the segmental branches. HILAR AND MEDIASTINAL STRUCTURES: Prior gastric pull-through procedure. No mediastinal or hilar richard opathy. HARDWARE: None in the chest. UPPER ABDOMEN: Stable area of decreased attenuation in the right lobe of the liver. THYROID AND OTHER SOFT TISSUES: No masses. No adenopathy. BONES: No acute or significant finding. 3D MIPS: Confirm above findings. OTHER: No other significant finding. IMPRESSION: 1. There is no pulmonary embolus. There is no aortic aneurysm or dissection. 2. Surgical changes. 3. Diaphragmatic hernia with portion of the liver in the mediastinum. COMMENT: Quality ID # [id number]: Final reports with documentation of one or more dose reduction techniques (e.g., Automated exposure control, adjustment of the mA and/or kV according to patient size, use of iterative reconstruction technique) TECHNICAL DOCUMENTATION: JOB ID: [id number] [email or web address]- All Rights Reserved Reading location - IP/workstation name: [email or web address]
[2018-12-20] MEDS ORDERED: IPRATROPIUM/ALBUTEROL 120 PUFF/4 GM MDI IH ONE ×2 (21:38→21:53)
[2018-12-20 21:39] VITALS: BP 127/89
== END 2018-12-20 21:57 | disposition home or self-care (01) ==
LOC: ER 15:33
DX: J40 Bronchitis, not specified as acute or chronic (principal); R06.02 Shortness of breath; R06.2 Wheezing; R05 Cough; R00.0 Tachycardia, unspecified; Z91.040 Latex allergy status; Z90.49 Acquired absence of other specified parts of digestive tract
CPT/HCPCS: 94640; 99285; 36415; 82803; 85025; 81025; 80053; 81001; 71046; 71275; 36600; J7620